=== PATIENT | female | born 1980 | race Caucasian/White ===

== ENCOUNTER 2021-02-17 05:47 | Day surgery (SDC) | payer BC ==
[~2021-02-17] VITALS: Ht 167.6 cm; Wt 114.0 kg
[~2021-02-17 05:47] MED LIST: AUGMENTIN 875-1 EACH PO; CALCITRIOL0.25 MCG PO; CALCITRIOL0.5 MCG PO; CALCIUM CARBON500 MG PO; CIPRO500 MG PO; FLUZONE IM; LEVOTHYROXINE137 MCG PO; NAPROXEN500 MG PO; NORCO 5-325 TA1 EACH PO; TOPAMAX25 MG PO; WELLBUTRIN XL300 MG PO
--- NOTE | 2021-02-17 08:20 | NUR ---
02/17/21 0820 Edilson,Enma 0889 PT ARRIVED TO PACU ON 6L VIA MASK WITH ORAL AIRWAY IN PLACE AND HYDRAULIC SPECIALIST PULLED PT WAS STARTING TO MOVE AND REACH FOR FACE. VSS.
--- NOTE | 2021-02-18 11:28 | PATH ---
[facility] [address] [place], [place] [address] Signed SPECIMEN(S): A ENDOMETRIAL CURETTINGS SPECIMEN SOURCE: A. ENDOMETRIAL CURETTINGS CLINICAL HISTORY: Hysteroscopy DC. Abnormal vaginal/uterine bleeding. FINAL PATHOLOGIC DIAGNOSIS: Endometrium, curettage: - Disordered proliferative endometrium. - Negative for atypical hyperplasia or malignancy. NAL:cml:C2NR MICROSCOPIC EXAMINATION: Histologic sections of all submitted blocks are examined by light microscopy. These findings, together with the gross examination, support the pathologic diagnosis. GROSS DESCRIPTION: The specimen, labeled "JF, A.," and designated on the requisition "endometrial curettings," is received in formalin and consists of bonilla-pink soft tissue fragments with mucus and clot material measuring 5.2 x 2.9 x 0.6 cm in aggregate. Specimen is filtered and entirely submitted in cassettes (A1-A3). AT (under the direct supervision of a pathologist) The Gross Description was prepared using a voice recognition system. The report was reviewed for accuracy; however, sound-alike word errors, addition and/or deletions may occur. If there is any question about this report, please contact Client Services. PERFORMING LABORATORY: The technical component was performed by [facility], [address] [place] [id number] (Parent Partner: Jeanne Huertas MD; CLIA# [id number]). [facility] [address] [address] (CLIA# [id number]). Diagnostician: Meli Johnson MD Pathologist Electronically Signed 02/18/2021 PATIENT NAME: YEN LU PATHOLOGY DATE OF : 76 REPORT #: [id number] PHYSICIAN: ELE PATHOLOGY PCP: GILA GRANT MD REPORT IS CONFIDENTIAL AND NOT TO BE RELEASED WITHOUT AUTHORIZATION [facility] [address] [place] [id number] Signed Copies: ~ PATIENT NAME: YEN LU PATHOLOGY DATE OF : 76 REPORT #: [id number] PHYSICIAN: INCYTE PATHOLOG[facility] PCP: GILA GRANT MD REPORT IS CONFIDENTIAL AND NOT TO BE RELEASED WITHOUT AUTHORIZATION
--- NOTE | 2021-02-22 16:29 | OR ---
[address] [address] Signed DATE OF OPERATION: 02/17/2021 SURGEON: Shira Hansen DO PROCEDURES: Hysteroscopy, dilation and curettage. DIRECTOR SOFTWARE: None. PREOPERATIVE DIAGNOSES: 1. Abnormal uterine bleeding. 2. Irregular periods. 3. Uterine polyps. POSTOPERATIVE DIAGNOSES: 1. Abnormal uterine bleeding. 2. Irregular periods. 3. Uterine polyps. ANESTHESIA: Monitored anesthesia care. ESTIMATED BLOOD LOSS: 25 mL. SPECIMEN: Endometrial curettings. DRAINS: None. IMPLANTS: None. PACKING: None. FINDINGS: Normal external genitalia. Cervical descensus 2 cm above the hymenal ring. Endometrial Electronically Signed By: SHIRA HANSEN DO 02/22/21 1629 PATIENT NAME: YEN LU OPERATIVE REPORT DATE OF : 76 REPORT #: [id number] PHYSICIAN: SHIRA HANSEN DO PCP: GILA GRANT MD REPORT IS CONFIDENTIAL AND NOT TO BE RELEASED WITHOUT AUTHORIZATION [address] [address] Signed cavity with diffusely polypoid appearance. No fibroids noted. Bilateral tubal ostia visualized. COMPLICATIONS: None. INDICATIONS: The patient is a 40-year-old female with recent history of abruptly irregular periods including bleeding for as long as one calendar month. Ultrasound demonstrated uterine polyps. Risks, benefits, and alternatives to hysteroscopy and D and C were discussed and she elected to proceed. DESCRIPTION OF PROCEDURE: The patient was taken to the operating room, where she was placed under monitored anesthesia care and positioned in dorsal lithotomy with Yellofin stirrups. She was prepped and draped in the normal sterile fashion. A weighted speculum was inserted in the vagina and an Allis clamp was placed on the anterior lip of the cervix in the 12 o'clock position. The cervix was sequentially dilated with Hegar dilators with some stenosis encountered. Serial dilation continued to #7 Hegar dilator. Dilator was removed and hysteroscope was inserted through the cervix without any difficulty. An endometrial cavity was surveyed with findings as noted above. MyoSure REACH device was then introduced and used to perform circumferential curettage and polypectomy across the endometrial lining. Following circumferential curettage, instrumentation was removed. Excellent hemostasis was noted. Lap and instrument counts were correct. The patient was taken to the recovery room in stable condition. AquaLux system demonstrated a fluid deficit of 795 mL. Shira Hansen DO EMZ/MODL /[id number] Copies: Electronically Signed By: SHIRA HANSEN DO 02/22/21 1629 PATIENT NAME: YEN LU OPERATIVE REPORT DATE OF : 76 REPORT #: [id number] PHYSICIAN: SHIRA HANSEN DO PCP: GILA GRANT MD REPORT IS CONFIDENTIAL AND NOT TO BE RELEASED WITHOUT AUTHORIZATION [facility] [address] [place] [address] [place], [place] [address] Signed ~ Electronically Signed By: SHIRA HANSEN DO 02/22/21 1629 PATIENT NAME: YEN LU OPERATIVE REPORT DATE OF : 76 REPORT #: [id number] PHYSICIAN: SHIRA HANSEN DO PCP: GILA GRANT MD REPORT IS CONFIDENTIAL AND NOT TO BE RELEASED WITHOUT AUTHORIZATION
== END 2021-02-17 08:52 | disposition home or self-care (01) ==
LOC: DS 05:47 → OPS 05:47 → DS 06:45 → OPS 06:45
PROVIDERS: ATTEND Obstetrics & Gynecology
PROC: 0UJD8ZZ Inspection of Uterus and Cervix, Via Natural or Artificial Opening Endoscopic (ICD-10-PCS; 2021-02-17)
PROC: 0UDB7ZX Extraction of Endometrium, Via Natural or Artificial Opening, Diagnostic (ICD-10-PCS; principal; 2021-02-17 06:45)
DX: N84.0 Polyp of corpus uteri (principal); N93.9 Abnormal uterine and vaginal bleeding, unspecified; E89.0 Postprocedural hypothyroidism; I10 Essential (primary) hypertension; Z68.41 Body mass index [BMI] 40.0-44.9, adult
CPT/HCPCS: 00952; J0131; J1100; J1644; J1885; J2001; J2405; J2704; J3010; J7121

== ENCOUNTER 2022-07-12 10:25 | Emergency (ER) | payer BC ==
[~2022-07-12] VITALS: Ht 167.6 cm; Wt 93.6 kg
--- NOTE | 2022-07-14 15:30 | EKG ---
[facility] [address] [place] [address] Signed Normal sinus rhythm Minimal voltage criteria for LVH, may be normal variant ( Sodus product ) Cannot rule out Anterior infarct , age undetermined Abnormal ECG When compared with ECG of 10-FEB-2021 13:28, Minimal criteria for Anterior infarct are now present Confirmed by FÉLIX ROBERTSON MD ([id number]) on 07/14/2022 3:30:32 PM Electronically Signed By: FÉLIX ROBERTSON MD 07/14/22 1530 PATIENT NAME: YEN LU Electrocardiogram DATE OF : 76 PHYSICIAN: FÉLIX ROBERTSON MD REPORT #: [id number] REPORT IS CONFIDENTIAL AND NOT TO BE RELEASED WITHOUT AUTHORIZATION
== END 2022-07-12 13:42 | disposition home or self-care (01) ==
LOC: ED 10:25
DX: E83.42 Hypomagnesemia (principal); E87.6 Hypokalemia; Z87.891 Personal history of nicotine dependence; Z88.5 Allergy status to narcotic agent; Z88.0 Allergy status to penicillin; Z88.8 Allergy status to other drugs, medicaments and biological substances; Z79.899 Other long term (current) drug therapy
CPT/HCPCS: 36415; 80053; 83735; 85025; 93005; 93010; 96374; 99284-25; A9270; J3475

== ENCOUNTER 2024-10-19 21:04 | Emergency (ER) | payer BC ==
[~2024-10-19] VITALS: Ht 167.6 cm; Wt 78.0 kg
[2024-10-19] MEDS ORDERED: ondansetron HCL 4 MG/2 ML VIAL IV ONE (21:30)
[2024-10-19] MEDS ORDERED: MORPHINE SULFATE 4 MG/ML VIAL IV ONE (21:30)
[2024-10-19 21:42] LABS: BASOPHILS 0.3 % (0-2); EOSINOPHILS 1.3 % (0-6); HEMOGLOBIN 13.3 g/dL (12.0-18.0); LYMPHOCYTES 39.7 % (24-44); MCHC 34.1 g/dl (30-36); MCV 91.1 fl (81-99); MONOCYTES 7.7 % (0-12); PLATELET COUNT 301 K/uL (140-440); RBC 4.28 M/ul (4.3-5.7); RDW 12.8 (10.5-15.0)
[2024-10-19 21:58] LABS: ALBUMIN 3.3 g/dL (3.4-5.0); ALBUMIN/GLOBULIN RATIO 0.89 (1.1-2.4); ANION GAP 9.5 (7-21); BILIRUBIN, TOTAL 0.2 ng/dL (0.2-1.0); BUN/CREATININE RATIO 15.17 (6.0-28.6); CALCIUM 8.7 mg/dL (8.5-10.1); CREATININE, SERUM 1.12 mg/dL (0.55-1.02); POTASSIUM 3.5 mmol/L (3.5-5.1)
[2024-10-19] MEDS ORDERED: VITAMIN B COMP1 EAC1 PO (21:58)
[2024-10-19] MEDS ORDERED: FLINTSTONES1 EAC1 PO (21:58)
[2024-10-19] MEDS ORDERED: MAGNESIUM250 M2 PO (21:59)
[2024-10-19] MEDS ORDERED: PROGESTERONE100 MG PO (22:00)
[2024-10-19] MEDS ORDERED: PREMARIN1.25 MG PO (22:00)
[2024-10-19] MEDS ORDERED: DHEA25 MG PO (22:01)
[2024-10-19] MEDS ORDERED: BIOTIN5 M1 PO (22:01)
[2024-10-19] MEDS ORDERED: CARAFATE1 GM PO (23:15)
[2024-10-19] MEDS ORDERED: PROTONIX40 MG PO (23:15)
[2024-10-19 23:30] VITALS: BP 99/66
[2024-10-19] MEDS ORDERED: SUCRALFATE 1 GM TAB PO ONE (23:30)
[2024-10-19] MEDS ORDERED: PANTOPRAZOLE SODIUM 40 MG TABEC PO ONE (23:30)
== END 2024-10-19 23:30 | disposition home or self-care (01) ==
LOC: ED 21:04
PROVIDERS: Family Medicine
DX: K29.70 Gastritis, unspecified, without bleeding (principal); Z98.84 Bariatric surgery status; Z87.891 Personal history of nicotine dependence; Z88.0 Allergy status to penicillin; Z88.1 Allergy status to other antibiotic agents; Z88.5 Allergy status to narcotic agent; Z79.890 Hormone replacement therapy; Z79.899 Other long term (current) drug therapy
CPT/HCPCS: 36415; 74177; 80053; 83690; 84703; 85025; 99284-25; A9270; Q9967

== ENCOUNTER 2025-06-16 20:23 | Emergency (ER) | payer BC ==
[~2025-06-16] VITALS: Ht 167.6 cm; Wt 78.4 kg
[~2025-06-16 20:23] MED LIST changes: +BIOTIN5 M1 PO; +CARAFATE1 GM PO; +DHEA25 MG PO; +FLINTSTONES1 EAC1 PO; +MAGNESIUM250 M2 PO; +PREMARIN1.25 MG PO; +PROGESTERONE100 MG PO; +PROTONIX40 MG PO; +VITAMIN B COMP1 EAC1 PO
[2025-06-16 21:05] LABS: BASOPHILS 0.4 % (0.1-1.2); EOSINOPHILS 2.2 % (0.7-5.8); LYMPHOCYTES 32.7 % (19.3-51.7); MCH 30.4 PG (25.6-32.2); MCHC 33.8 g/dL (32.2-35.5); MCV 90.1 fL (79.4-94.8); MONOCYTES 6.8 % (4.7-12.5); NEUTROPHILS 57.5 % (34.0-71.1); RBC 4.24 M/uL (3.93-5.22)
[2025-06-16 21:12] LABS: INR 0.99 (0.80-1.30); PROTIME 12.7 Sec (11.2-14.2)
[2025-06-16 21:19] LABS: ALT (SGPT) 24 U/L (14-59); AST (SGOT) 35 U/L (15-37); GLOMERULAR FILTRATION RATE,EST 58 mL/min (>60); PROTEIN, TOTAL 6.9 g/dL (6.4-8.2); UREA NITROGEN 16 mg/dL (7-18)
[2025-06-16] MEDS ORDERED: HYDROmorphone HCL 1 MG/ML SYR IV PRN (21:45)
[2025-06-16] MEDS ORDERED: SUCRALFATE 1 GM TAB PO ONE (22:15)
[2025-06-16] MEDS ORDERED: LIDOCAINE & ANTACID 35 ML BTL PO ONE (22:15)
[2025-06-16] MEDS ORDERED: TRAMADOL HCL50 MG PO (22:19)
[2025-06-16] MEDS ORDERED: TRAMADOL HCL 50 MG HOME.PACK PO ONE (22:30)
[2025-06-16 23:20] VITALS: BP 125/85
--- NOTE | 2025-06-17 21:28 | EKG ---
[facility] [address] [facility] [place] [address] Signed Normal sinus rhythm Normal ECG When compared with ECG of 12-JUL-2022 10:34, No significant change was found Confirmed by Monalisa Briscoe MD () on 06/17/2025 9:27:57 PM Electronically Signed By: MONALISA BRISCOE MD 06/17/258 PATIENT NAME: YEN LU Electrocardiogram DATE OF : 76 PHYSICIAN: MONALISA BRISCOE MD REPORT #: [id number] REPORT IS CONFIDENTIAL AND NOT TO BE RELEASED WITHOUT AUTHORIZATION
== END 2025-06-16 23:20 | disposition home or self-care (01) ==
LOC: ED 20:23
PROVIDERS: Family Medicine
DX: K29.70 Gastritis, unspecified, without bleeding (principal); E89.0 Postprocedural hypothyroidism; Z87.891 Personal history of nicotine dependence; Z98.84 Bariatric surgery status; Z88.5 Allergy status to narcotic agent; Z88.0 Allergy status to penicillin; Z88.1 Allergy status to other antibiotic agents; Z79.890 Hormone replacement therapy; Z79.899 Other long term (current) drug therapy
CPT/HCPCS: 36415; 71045; 74177; 80053; 83690; 83735; 84484; 84703; 85025; 85379; 85610; 93005; 93010; 99284-25; A9270; Q9967

== ENCOUNTER 2025-08-28 09:00 | Day surgery (SDC) | payer BC ==
[~2025-08-28] VITALS: Ht 167.6 cm; Wt 77.0 kg
[~2025-08-28 09:00] MED LIST changes: +IBLOOD GLUCOSE TEST STRIP 1 EA TEST VI PRN; +LACTATED RINGER'S 1,000 ML IV SCH; +LIDOCAINE HCL 1% 5 ML SDV INJ ONE; +TRAMADOL HCL50 MG PO
[2025-08-28 09:43] VITALS: BP 122/80
[2025-08-28] MEDS ORDERED: LIDOCAINE HCL 2% 5 ML SDV ONE (11:02)
--- NOTE | 2025-08-28 12:04 | NUR ---
08/28/25 1204 Raven Palacio 1200-PATIENT ARRIVED TO PACU ON 4L NC RR EVEN HOB ELEVATED PATIENT REACTIVE TO VERBAL STIMULI ORIENTED TO PACU. SR HR 80'S. IVF INFUSING
[2025-08-28 12:30] VITALS: BP 120/80
== END 2025-08-28 12:37 | disposition home or self-care (01) ==
LOC: OPS 09:00 → DS 09:00 → OPS 10:25 → DS 11:15 → OPS 12:10
PROVIDERS: ATTEND Surgery
PROC: 0DB78ZX Excision of Stomach, Pylorus, Via Natural or Artificial Opening Endoscopic, Diagnostic (ICD-10-PCS; principal; 2025-08-28 12:10)
DX: K29.70 Gastritis, unspecified, without bleeding (principal); K44.9 Diaphragmatic hernia without obstruction or gangrene; Z85.850 Personal history of malignant neoplasm of thyroid; Z79.890 Hormone replacement therapy; Z79.899 Other long term (current) drug therapy; Z88.0 Allergy status to penicillin; Z88.5 Allergy status to narcotic agent; Z90.89 Acquired absence of other organs; Z98.84 Bariatric surgery status; Z98.890 Other specified postprocedural states
CPT/HCPCS: 00731; 87077; 88305; J2003; J2704; J7121